=== PATIENT | male | born 1940 | race Two or more races ===

== ENCOUNTER 2018-03-24 09:48 | Outpatient (CLI) | payer OTHER | END 2018-03-24 09:58 | disposition home or self-care (01) | LOC: NUCLEAR 09:48 | DX: C61 Malignant neoplasm of prostate (principal) | CPT/HCPCS: 78306; A9503 ==

== ENCOUNTER 2018-04-01 08:10 | Outpatient (CLI) | payer OTHER | END 2018-04-01 08:23 | disposition home or self-care (01) | LOC: RAD 501 08:10 | DX: Q32.4 Other congenital malformations of bronchus (principal) ==

== ENCOUNTER 2018-05-16 08:04 | Outpatient (CLI) | payer OTHER | END 2018-05-16 08:11 | disposition home or self-care (01) | LOC: RX STUDY 08:04 | DX: K22.8 Other specified diseases of esophagus (principal) ==